=== PATIENT | female | born 1990 | race Two or more races ===

== ENCOUNTER → 2020-12-04 | Outpatient (CLI) | payer BC, OTHER ==
[2014-09-22 11:35] VITALS: BP 113/67
== END ==
LOC: LAB 11:28
PROVIDERS: ATTEND Obstetrics & Gynecology
DX: Z01.812 Encounter for preprocedural laboratory examination (principal); Z20.822 Contact with and (suspected) exposure to COVID-19
CPT/HCPCS: U0003

== ENCOUNTER 2020-12-09 07:33 | Day surgery (SDC) | payer OTHER ==
[~2020-12-09] VITALS: Ht 165.1 cm; Wt 122.5 kg
[~2020-12-09 07:33] MED LIST: HYDROmorphone 2 MG/ML VIAL IVP PRN; IV RINGERS,LACTATED 1000ML 1,000 ML IV SCH; MORPHINE SULFATE 2 MG/ML VIAL. IVP PRN; PROCHLORPERAZINE 10 MG/2 ML VIAL. IVP PRN; fentaNYL PF VIAL 100 MCG/2 ML VIAL IVP PRN
[2020-12-09] MEDS ORDERED: fentaNYL PF VIAL 100 MCG/2 ML VIAL ONE (08:33)
[2020-12-09] MEDS ORDERED: SEVOFLURANE 31 TO 60 MINUTES. IH ONE (08:56)
[2020-12-09] MEDS ORDERED: PROPOFOL 10 MG/ML (20ML) VIAL. IV ONE (08:56)
[2020-12-09] MEDS ORDERED: ONDANSETRON PF 4 MG/2 ML VIAL. ONE (08:57)
[2020-12-09] MEDS ORDERED: LIDOCAINE 2% PF 5 ML VIAL. ONE (08:57)
[2020-12-09] MEDS ORDERED: KETOROLAC 30 MG/ML VIAL. ONE (08:57)
[2020-12-09] MEDS ORDERED: DEXAMETHASONE SOD PHOS 4 MG/ML VIAL ONE (08:57)
[2020-12-09] MEDS ORDERED: ceFAZolin SODIUM IV Push 1 GM VIAL. IVP ONE (09:13)
--- NOTE | 2020-12-09 09:20 | PDOC ---
GENERAL General: 30 yrs old lady has Dysfunctional uterine Bleeding. Scheduled for D&C VITAL SIGNS Vital Signs/I&O: Vital Signs Date Time Temp Pulse Resp B/P (MAP) Pulse Ox O2 Delivery O2 Flow Rate FiO2 12/09/20 08:01 98.5 85 18 125/68 99 Room Air 98.5 ALLERGIES Allergies: Allergies Coded Allergies Type Severity Reaction Last Updated Verified No Known Drug Allergies 12/09/20 No MEDS Medications: Current Medications Medications (Trade) Dose Ordered Sig/Komal Route PRN Reason Start Time Stop Time Status Last Admin Dose Admin Ringer's Solution 1,000 ml @ 30 mls/hr Q24H IV 12/09/20 06:00 12/09/20 17:59 12/09/20 08:05 LAB Lab: Laboratory Tests Test 12/09/20 06:56 POC Urine HCG, Qualitative Hcg negative (Negative) ASSESSMENT & PLAN A&P Under GA D&C done. EBL 8cc. Justifications for Admission Other Justification PRESTON MIRAMONTES MD Dec 09, 2020 09:20
--- NOTE | 2020-12-09 09:52 | OP ---
DATE OF SURGERY: 12/09/2020 PREOPERATIVE DIAGNOSIS: Dysfunctional uterine bleeding. POSTOPERATIVE DIAGNOSIS: Dysfunctional uterine bleeding. OPERATION PERFORMED: Diagnostic D and C (dilatation and curettage). DESCRIPTION OF PROCEDURE: The patient was taken to the operating room. Under general anesthesia, she was placed in a dorsal lithotomy position. Perineum was prepped and draped in the usual manner. Weighted speculum inserted in the posterior vaginal wall. Anterior lip of cervix was held with a tenaculum. Uterine sound is used to measure the length of the uterine cavity, which appears normal. Cervix was dilated first and then a medium-sized curette was used to curette the endometrial cavity. All the curettings obtained were subjected for pathological examination. At the end of the curettage, speculum tenaculum is removed. The patient was sent to the recovery room in good condition. No complications encountered at time of the procedure. Estimated blood loss about 8 mL. She will be followed in the office in 2 weeks for further care and treatment. PRESTON MIRAMONTES MD DR: [email or web address] JOB#: [id number] / [id number]
[2020-12-09 09:58] LABS: BASO # 0.1 x10^3/uL (0.0-0.2); BASO % 1 % (0-3); EOS # 0.8 x10^3/uL (0.0-0.7); EOS % 8 % (0-3); HEMATOCRIT 33.3 % (36.0-47.0); HEMOGLOBIN 10.6 g/dL (12.0-15.5); LYMPH # 3.3 x10^3/uL (1.0-4.8); LYMPH % 30 % (24-48); MEAN CORPUSCULAR HEMOGLOBIN 25 pg (25-35); MEAN CORPUSCULAR HGB CONC 32 g/dL (31-37); MEAN CORPUSCULAR VOLUME 77 fL (79-100); MONO # 0.4 x10^3/uL (0.0-1.1); MONO % 4 % (0-9); NEUT # 6.3 x10^3/uL (1.8-7.7); NEUT % 57 % (31-73); PLATELET COUNT 347 x10^3/uL (140-400); RED BLOOD COUNT 4.34 x10^6/uL (3.50-5.40); RED CELL DISTRIBUTION WIDTH 15.4 % (11.5-14.5)
[2020-12-09 10:22] VITALS: BP 124/61
== END 2020-12-09 11:10 | disposition home or self-care (01) ==
LOC: SURG 07:33
PROVIDERS: ATTEND Obstetrics & Gynecology
DX: N93.8 Other specified abnormal uterine and vaginal bleeding (principal); Z79.899 Other long term (current) drug therapy; Z98.890 Other specified postprocedural states; Z72.89 Other problems related to lifestyle
CPT/HCPCS: 36415; 58120; 81025; 85025; A4930; J0690; J1100; J1885; J2405; J2704; J3010